=== PATIENT | female | born 1955 | race Caucasian/White ===

== ENCOUNTER 2021-07-04 10:59 | Outpatient (CLI) | payer BC ==
[2021-07-05 02:01] LABS: SARS-CoV-2 PCR by NAA DETECTED (NotDetected)
== END 2021-07-04 11:00 | disposition home or self-care (01) ==
LOC: CSHLAB 10:59
PROVIDERS: ATTEND Surgery
DX: U07.1 COVID-19 (principal)
CPT/HCPCS: U0003; U0005

== ENCOUNTER 2021-07-18 07:59 | Outpatient (CLI) | payer BC | END 2021-07-18 08:00 | disposition home or self-care (01) | LOC: CSHRAD 07:59 | PROVIDERS: ATTEND Surgery | DX: K21.9 Gastro-esophageal reflux disease without esophagitis (principal); K31.89 Other diseases of stomach and duodenum | CPT/HCPCS: 74220 ==

== ENCOUNTER 2024-01-23 03:59 | Emergency (ER) | payer MEDICARE | END 2024-01-23 05:01 | disposition home or self-care (01) | LOC: CSHERS 03:59 | DX: J11.1 Influenza due to unidentified influenza virus with other respiratory manifestations (principal); K21.9 Gastro-esophageal reflux disease without esophagitis | CPT/HCPCS: 71046; 87428 ==